=== PATIENT | male | born 1970 | race Caucasian/White ===

== ENCOUNTER 2016-02-29 18:18 | Inpatient (IN) | payer OTHER ==
[2016-02-29 20:19] VITALS: BMI 28.7
--- NOTE | 2016-02-29 21:46 | HP ---
COWS - Scale Resting Pulse: 0= [place] 80 or Below Sweatin= Chills/Flushing Restless Observation: 3= Extraneous Movement Pupil Size: 0= Normal to Room Light Bone or Joint Aches: 1= Mild Discomfort Runny Nose/ Eye Tearin= Nasal Congestion GI Upset > 30mins: 1= Stomach Cramp Tremor Observation: 2= Slight Tremor Visible Yawning Observation: 2= >3x During Session Anxiety or Irritability: 2=Irritable/Anxious Goose Flesh Skin: 3=Piloerection COWS Score: 16 Admission ROS S - HPI Chief Complaint: WITHDRAWAL SYMPTOMS Allergies/Adverse Reactions: Allergies Allergy/AdvReac Type Severity Reaction Status Date / Time house dust Allergy Verified 02/29/16 21:43 History of Present Illness: 45 Y.O. MAN WITH A 2-3 YEAR HISTORY OF OPIATE DEPENDENCE IS SEEKING DETOX FOR THE FIRST TIME. Exam Limitations: No Limitations - Ebola screening Have you traveled outside of the country in the last 21 days: No Have you had contact with anyone from an Ebola affected area: No Have you been sick,other than usual withdrawal symptoms: No Do you have a fever: No - Review of Systems Constitutional: Malaise, Night Sweats EENT: reports: Tearing, Nose Congestion Respiratory: reports: No Symptoms reported Cardiac: reports: No Symptoms Reported GI: reports: Constipated : reports: Other (HESITANCY) Musculoskeletal: reports: Back Pain Integumentary: reports: No Symptoms Reported Neuro: reports: No Symptoms reported, Tremors Endocrine: reports: No Symptoms Reported Hematology: reports: No Symptoms Reported Psychiatric: reports: Mood/Affect Appropiate, Orientated x3 Other Systems: Reviewed and Negative Patient History - Patient Medical History Hx Anemia: No Hx Asthma: No Hx Chronic Obstructive Pulmonary Disease (COPD): No Hx Cancer: No Hx Cardiac Disorders: No Hx Congestive Heart Failure: No Hx Hypertension: No Hx Hypercholesterolemia: No Hx Pacemaker: No HX Cerebrovascular Accident: No Hx Seizures: No Hx Dementia: No Hx Diabetes: No Hx Gastrointestinal Disorders: No Hx Liver Disease: No Hx Genitourinary Disorders: No Hx Sexually Transmitted Disorders: No Hx Renal Disease (ESRD): No Hx Thyroid Disease: No Hx Human Immunodeficiency Virus (HIV): No Hx Hepatitis C: No Hx Depression: Yes Hx Suicide Attempt: No Hx Bipolar Disorder: No Hx Schizophrenia: No - Patient Surgical History Past Surgical History: Yes Hx Orthopedic Surgery: Yes (RIGHT SHOULDER REPAIR ) Anesthesia Reaction: No - PPD History Previous Implant?: Yes Documented Results: Negative w/o proof PPD to be Administered?: Yes - Reproductive History Patient is a Female of Child Bearing Age (11 -55 yrs old): No - Smoking Cessation Smoking history: Current every day smoker Have you smoked in the past 12 months: Yes Aproximately how many cigarettes per day: 20 Hx Chewing Tobacco Use: No Initiated information on smoking cessation: Yes 'Breaking Loose' booklet given: 02/29/16 - Substance & Tx. History Hx Alcohol Use: No Hx Substance Use: Yes Substance Use Type: Opiates Hx Substance Use Treatment: No - Substances Abused Oxycontin Route: Oral Frequency: 3-6 times per week Amount used: 200MG Age of first use: 42 Date of Last Use: 02/29/16 Family Disease History - Family Disease History Family Disease History: Diabetes: Father, Heart Disease: Father, CA: Mother ( BREAST ) Admission Physical Exam [facility] - Vital Signs Vital Signs: Vital Signs - 24 hr 02/29/16 20:16 Temperature 97.8 F Pulse Rate 78 Respiratory 18 Rate Blood Pressure 127/71 - Physical General Appearance: Yes: No Apparent Distress, Nourished, Appropriately Dressed , Tremorous HEENTM: Yes: Normal ENT Inspection, Normocephalic, Normal Voice Respiratory: Yes: Chest Non-Tender, Lungs Clear, Normal Breath Sounds, No Respiratory Distress, No Accessory Muscle Use Neck: Yes: No masses,lesions,Nodules, Trachea in good position Breast: Yes: Breast Exam Deferred Cardiology: Yes: Regular Rhythm, Regular Rate Abdominal: Yes: Normal Bowel Sounds, Non Tender, Flat, Soft Genitourinary: Yes: Within Normal Limits Back: Yes: Normal Inspection Musculoskeletal: Yes: Gait Steady, Back pain Extremities: Yes: Normal Inspection, Normal Range of Motion, Non-Tender Neurological: Yes: Fully Oriented, Alert, Normal Mood/Affect, Normal Response Integumentary: Yes: Normal Color, Dry, Warm Lymphatic: Yes: Within Normal Limits - Diagnostic (1) Opioid dependence with withdrawal Current Visit: Yes Status: Chronic Cleared for Admission [facility] - Detox or Rehab [facility] Level of Care: Medically Managed Detox Regimen/Protocol: Methadone [facility] Breath Alcohol Content Breath Alcohol Content: 0 Urine Drug Screen - Results Drug Screen Negative: No Urine Drug Screen Results: OPI-Opiates
[2016-02-29] MEDS ORDERED: IBUPROFEN 400 MG TABLET (FP) PO PRN (22:02)
[2016-02-29] MEDS ORDERED: ACETAMINOPHEN 325 MG TABLET (FP) PO PRN (22:02)
[2016-02-29] MEDS ORDERED: MENTHOL/PHENOL 1 EACH UD MM PRN (22:02)
[2016-02-29] MEDS ORDERED: NICOTINE POLACRILEX 2 MG GUM BUC PRN (22:02)
[2016-02-29] MEDS ORDERED: guaiFENesin/D-METHORPHAN HB 10 ML UNIT-DOSE CUPS PO PRN (22:02)
[2016-02-29] MEDS ORDERED: MAGNESIUM HYDROX 2400MG/30ML ORAL SUSPENSION 30 ML CUP PO PRN (22:02)
[2016-02-29] MEDS ORDERED: MAGNESIUM CITRATE 300 ML BOTTLE PO PRN (22:02)
[2016-02-29] MEDS ORDERED: LOPERAMIDE HCL 2 MG CAPSULE PO PRN (22:02)
[2016-02-29] MEDS ORDERED: METHADONE HCL 10 MG TABLET (FOR DETOX USE ONLY) PO ONE ×2 (22:02→23:00)
[2016-02-29] MEDS ORDERED: diphenhydrAMINE HCL 50 MG CAPSULE PO PRN (22:02)
[2016-02-29] MEDS ORDERED: MAG HYDROX/AL HYDROX/SIMETH 30 ML UNIT-DOSE CUP PO PRN (22:02)
[2016-02-29] MEDS: diazePAM 5 MG TABLET PO PRN (23:26)
[2016-03-01] MEDS: diazePAM 5 MG TABLET PO PRN ×2 (05:24→17:46)
[2016-03-01] MEDS ORDERED: METHADONE HCL 10 MG TABLET (FOR DETOX USE ONLY) PO ONE (10:00)
[2016-03-01] MEDS: NICOTINE 21 MG/24 HOURS TOPICAL PATCH TD SCH (10:07)
[2016-03-01] MEDS: PRENATAL VITAMINS W/ FOLIC ACID TABLET (FP) PO SCH (10:07)
[2016-03-01 10:22] LABS: MCHC 33.3 g/dl (32.0-35.9); MEAN CELL VOLUME 90.1 fl (80-96); MEAN PLT VOLUME 8.5 fl (7.5-11.1); PLATELET COUNT 237 K/MM3 (134-434); RDW 12.9 % (11.9-15.9); WHITE BLOOD COUNT 10.8 K/mm3 (4.0-10.0)
[2016-03-01 10:45] LABS: ALBUMIN 3.6 g/dl (3.4-5.0); ALK PHOS 87 U/L (45-117); ANION GAP 8 (8-16); BILIRUBIN,TOTAL 0.3 mg/dL (0.2-1.0); CALCIUM 8.7 mg/dL (8.5-10.1); CO2 28 mmol/L (21-32); CREATININE 0.9 mg/dL (0.7-1.3); GLUCOSE,RANDOM 143 mg/dL (74-106); SGOT/AST 11 U/L (15-37); SGPT/ALT 19 U/L (12-78); TOT PROT 6.1 g/dl (6.4-8.2)
[2016-03-01] MEDS: P-EPHED 60MG/TRIPROLIDI 2.5MG TABLET PO PRN (12:08)
--- NOTE | 2016-03-01 16:29 | PN ---
[facility] COWS - Scale Resting Pulse: 0= [place] 80 or Below Sweatin=Flushed/Facial Moisture Restless Observation: 3= Extraneous Movement Pupil Size: 2= Moderately Dilated Bone or Joint Aches: 2= Severe Diffuse Aches Runny Nose/ Eye Tearin= Runny Nose/Eyes GI Upset > 30mins: 2= Nausea/Diarrhea Tremor Observation of Outstretched Hands: 2= Slight Tremor Visible Yawning Observation: 0= None Anxiety or Irritability: 2=Irritable/Anxious Goose Flesh Skin: 0=Smooth Skin COWS Score: 17 BHS Progress Note (SOAP) Subjective: Interrupted sleep, sweating, tremor, nausea, restless, anxiety Objective: 03/01/16 16:27 Last Vital Signs Temp Pulse Resp BP Pulse Ox 97 F L 69 20 112/71 03/01/16 13:55 03/01/16 13:55 03/01/16 13:55 03/01/16 13:55 Laboratory Tests 03/01/16 03/01/16 03/01/16 08:00 08:00 08:00 WBC 10.8 H RBC 4.65 Hgb 14.0 Hct 41.9 MCV 90.1 MCHC 33.3 RDW 12.9 Plt Count 237 MPV 8.5 Sodium 144 Potassium 3.9 Chloride 108 H Carbon Dioxide 28 Anion Gap 8 BUN 17 Creatinine 0.9 Creat Clearance w eGFR > 60 Random Glucose 143 H Calcium 8.7 Total Bilirubin 0.3 AST 11 L ALT 19 Alkaline Phosphatase 87 Total Protein 6.1 L Albumin 3.6 RPR Titer Nonreactive Labs noted: glucose 143 Assessment: 03/01/16 16:29 Withdrawal symptoms Noted with hyperglycemia Plan: Continue detox Hyperglycemia: change diet to diabetic, start finger stick glucose ac meals, start insulin novolog sliding scale with coverage, BMP and HbA1c in AM, UA reordered (was not done); consider changing diet if warranted
[2016-03-01] MEDS: ZOLPIDEM TARTRATE 10 MG TABLET (PARK CARE ONLY) PO PRN (22:26)
[2016-03-01] MEDS: THIAMINE HCL 100 MG TABLET (FP) PO SCH (22:26)
[2016-03-02] MEDS: diazePAM 5 MG TABLET PO PRN ×2 (05:35→22:11)
[2016-03-02] MEDS ORDERED: METHADONE HCL 5 MG TABLET (FOR DETOX USE ONLY) PO ONE (10:00)
[2016-03-02] MEDS: PRENATAL VITAMINS W/ FOLIC ACID TABLET (FP) PO SCH (10:22)
[2016-03-02] MEDS: LIDOCAINE 5% TOPICAL PATCH TP SCH (10:23)
[2016-03-02] MEDS: NICOTINE 21 MG/24 HOURS TOPICAL PATCH TD SCH (10:24)
--- NOTE | 2016-03-02 10:50 | PN ---
[facility] COWS - Scale Resting Pulse: 1= [place] 81-100 Sweatin=Flushed/Facial Moisture Restless Observation: 1= Difficult to Sit Still Pupil Size: 0= Normal to Room Light Bone or Joint Aches: 2= Severe Diffuse Aches Runny Nose/ Eye Tearin= Runny Nose/Eyes GI Upset > 30mins: 1= Stomach Cramp Tremor Observation of Outstretched Hands: 2= Slight Tremor Visible Yawning Observation: 1= 1-2x During Session Anxiety or Irritability: 2=Irritable/Anxious Goose Flesh Skin: 0=Smooth Skin COWS Score: 14 BHS Progress Note (SOAP) Subjective: SWEATING,ANXIETY,INTERRUPTED SLEEP,RESTLESS,TREMORS. Objective: 03/02/16 10:49 Last Vital Signs Temp Pulse Resp BP Pulse Ox 98.4 F 83 20 117/84 03/02/16 10:14 03/02/16 10:14 03/02/16 10:14 03/02/16 10:14 Laboratory Tests 03/01/16 03/01/16 03/01/16 08:00 08:00 08:00 WBC 10.8 H RBC 4.65 Hgb 14.0 Hct 41.9 MCV 90.1 MCHC 33.3 RDW 12.9 Plt Count 237 MPV 8.5 Sodium 144 Potassium 3.9 Chloride 108 H Carbon Dioxide 28 Anion Gap 8 BUN 17 Creatinine 0.9 Creat Clearance w eGFR > 60 POC Glucometer Random Glucose 143 H Fasting Glucose Calcium 8.7 Total Bilirubin 0.3 AST 11 L ALT 19 Alkaline Phosphatase 87 Total Protein 6.1 L Albumin 3.6 RPR Titer Nonreactive 03/01/16 03/02/16 16:47 06:30 WBC RBC Hgb Hct MCV MCHC RDW Plt Count MPV Sodium Potassium Chloride Carbon Dioxide Anion Gap BUN Creatinine Creat Clearance w eGFR POC Glucometer 100 Random Glucose Fasting Glucose 91 Calcium Total Bilirubin AST ALT Alkaline Phosphatase Total Protein Albumin RPR Titer LABS NOTED Assessment: 03/02/16 10:50 WITHDRAWAL SX. Plan: CONTINUE DETOX
[2016-03-02] MEDS: INSULIN SLIDING SCALE (NOVOLOG) 1 VIAL SQ SCH ×3 (11:22→19:27)
--- NOTE | 2016-03-02 14:04 | CONSULT ---
[facility] Psychiatric Consult - Data Date of interview: 03/02/16 Admission source: [facility] Identifying data: First admission to [facility] for this 45 y/o male seeking detox treatment on for opiate dependence.Patient is single without children,homeless,unemployed and reportedly deprived of any source of income. Substance Abuse History: - Smoking Cessation. Smoking history: Current every day smoker. Have you smoked in the past 12 months: Yes. Aproximately how many cigarettes per day: 20. Hx Chewing Tobacco Use: No. Initiated information on smoking cessation: Yes. 'Breaking Loose' booklet given: 02/29/16. - Substance & Tx. History. Hx Alcohol Use: No. Hx Substance Use: Yes. Substance Use Type : Opiates. Hx Substance Use Treatment: No. - Substances Abused. Oxycontin. Route: Oral. Frequency: 3-6 times per week. Amount used: 200MG. Age of first use: 42. Date of Last Use: 02/29/16. Patient confirmed. Medical History: Patient endorses good general health. Psychiatric History: Patient denies. Physical/Sexual Abuse/Trauma History: Patient denies. Additional Comment: Urine Drug Screen Results: OPI-Opiates.Noted. Mental Status Exam - Mental Status Exam Alert and Oriented to: Time, Place, Person Cognitive Function: Good Patient Appearance: Well Groomed Mood: Nervous, Withdrawn, Anxious, Hopeful Affect: Mood Congruent Patient Behavior: Fatigued, Appropriate, Cooperative Speech Pattern: Clear, Appropriate Voice Loudness: Normal Thought Process: Goal Oriented Thought Disorder: Not Present Hallucinations: Denies Suicidal Ideation: Denies Homicidal Ideation: Denies Insight/Judgement: Fair Sleep: Poorly, Difficulty falling asleep Appetite: Good Muscle strength/Tone: Normal Gait/Station: Normal Psychiatric Findings - Problem List ([place] 1, 2,3) (1) Opioid dependence with withdrawal Current Visit: Yes Status: Acute (2) Nicotine dependence Current Visit: Yes Status: Acute (3) Insomnia Current Visit: Yes Status: Acute - Initial Treatment Plan Initial Treatment Plan: Psychoeducation.Detoxification.Zolpidem 10 mg po hs prn.Patient is made aware of parasomnias.He agrrees with careplan.Observation.
[2016-03-02 16:34] LABS: URINE APPEARANCE CLEAR; URINE BILIRUBIN NEGATIVE (NEGATIVE); URINE BLOOD NEGATIVE (NEGATIVE); URINE COLOR LTYELLOW; URINE GLUCOSE (UA) NEGATIVE (NEGATIVE); URINE KETONE NEGATIVE (NEGATIVE); URINE LEUK ESTERASE NEGATIVE (NEGATIVE); URINE NITRITE NEGATIVE (NEGATIVE); URINE PROTEIN NEGATIVE (NEGATIVE); URINE UROBILINOGEN NEGATIVE E.U./dl (0.2-1.0)
[2016-03-02] MEDS: THIAMINE HCL 100 MG TABLET (FP) PO SCH (22:10)
[2016-03-02] MEDS: ZOLPIDEM TARTRATE 10 MG TABLET (PARK CARE ONLY) PO PRN (22:18)
[2016-03-03] MEDS: P-EPHED 60MG/TRIPROLIDI 2.5MG TABLET PO PRN (05:44)
[2016-03-03] MEDS: INSULIN SLIDING SCALE (NOVOLOG) 1 VIAL SQ SCH ×3 (07:00→17:27)
[2016-03-03] MEDS ORDERED: METHADONE HCL 5 MG TABLET (FOR DETOX USE ONLY) PO ONE (10:00)
[2016-03-03] MEDS: diazePAM 5 MG TABLET PO PRN (10:15)
[2016-03-03] MEDS: PRENATAL VITAMINS W/ FOLIC ACID TABLET (FP) PO SCH (10:15)
[2016-03-03] MEDS: LIDOCAINE 5% TOPICAL PATCH TP SCH (10:16)
[2016-03-03] MEDS: NICOTINE 21 MG/24 HOURS TOPICAL PATCH TD SCH (10:17)
--- NOTE | 2016-03-03 11:28 | PN ---
BHS Progress Note (SOAP) Subjective: ANXIETY, FATIGUE, SWEATS/CHILLS,CHRONIC LEFT HIP PAIN X 1 YR. Objective: 03/03/16 11:28 Vital Signs Temperature 95.5 F L 03/03/16 09:47 Pulse Rate 82 03/03/16 09:47 Respiratory Rate 20 03/03/16 09:47 Blood Pressure 126/80 03/03/16 09:47 O2 Sat by Pulse Oximetry (%) Assessment: 03/03/16 11:28 WITHDRAWAL SX Plan: CONTINUE DETOX
[2016-03-03] MEDS: NAPROXEN 500 MG TABLET (FP) PO SCH ×2 (14:26→22:08)
--- NOTE | 2016-03-03 14:35 | PN ---
[facility] Progress Note Note: Psychiatry Attending's note: Approached by patient. Concern : zolpidem is ineffective. Insomnia remains a problem for the patient. Mr Shah reports past good response to seroquel. He requests quetiapine at the dose of 50 mg at bedtime. Intervention : .Principles of sleep hygiene discussed with patient. .Seroquel 50 mg po hs.Ordered. .Side effects/benefits discussed with the patient. .Mr Shah is in agreement with this careplan.
[2016-03-03] MEDS: QUEtiapine FUMARATE 50 MG TABLET PO SCH (22:08)
[2016-03-03] MEDS: THIAMINE HCL 100 MG TABLET (FP) PO SCH (22:08)
[2016-03-03] MEDS: ZOLPIDEM TARTRATE 10 MG TABLET (PARK CARE ONLY) PO PRN (22:09)
[2016-03-04] MEDS: INSULIN SLIDING SCALE (NOVOLOG) 1 VIAL SQ SCH ×3 (06:29→16:58)
--- NOTE | 2016-03-04 09:35 | PN ---
BHS Progress Note (SOAP) Subjective: ANXIETY,IRRITABILITY,SEATS/CHILLS. Objective: 03/04/16 09:34 Vital Signs Temperature 96.5 F L 03/04/16 06:31 Pulse Rate 74 03/04/16 06:31 Respiratory Rate 18 03/04/16 06:31 Blood Pressure 109/78 03/04/16 06:31 O2 Sat by Pulse Oximetry (%) Assessment: 03/04/16 09:34 WITHDRAWAL SX Plan: CONTINUE DETOX. [facility]AR[facility] DIRECTED
--- NOTE | 2016-03-04 09:48 | EKG ---
Test Reason : Blood Pressure : / mmHG Vent. Rate : 078 BPM Atrial Rate : 078 BPM P-R Int : 122 ms QRS Dur : 096 ms QT Int : 366 ms P-R-T Axes : 047 057 040 degrees QTc Int : 417 ms NORMAL SINUS RHYTHM POSSIBLE LEFT ATRIAL ENLARGEMENT BORDERLINE ECG NO PREVIOUS ECGS AVAILABLE Confirmed by SHEYLA EARL, EVIN ([id number]) on 03/04/2016 9:47:45 AM Referred By: Confirmed By:EVIN CARRION MD
[2016-03-04] MEDS ORDERED: METHADONE HCL 10 MG TABLET (FOR DETOX USE ONLY) PO ONE (10:00)
[2016-03-04] MEDS: PRENATAL VITAMINS W/ FOLIC ACID TABLET (FP) PO SCH (10:24)
[2016-03-04] MEDS: NAPROXEN 500 MG TABLET (FP) PO SCH ×2 (10:24→22:44)
[2016-03-04] MEDS: LIDOCAINE 5% TOPICAL PATCH TP SCH (10:25)
[2016-03-04] MEDS: CYCLOBENZAPRINE HCL 10 MG TABLET (FP) PO PRN ×2 (10:26→17:33)
[2016-03-04] MEDS: hydrOXYzine PAMOATE 50 MG CAPSULE (FP) PO PRN ×2 (10:26→17:33)
[2016-03-04] MEDS: NICOTINE 21 MG/24 HOURS TOPICAL PATCH TD SCH (10:27)
[2016-03-04] MEDS: P-EPHED 60MG/TRIPROLIDI 2.5MG TABLET PO PRN (18:07)
[2016-03-04] MEDS: QUEtiapine FUMARATE 50 MG TABLET PO SCH (22:44)
[2016-03-04] MEDS: THIAMINE HCL 100 MG TABLET (FP) PO SCH (22:44)
[2016-03-04] MEDS: ZOLPIDEM TARTRATE 10 MG TABLET (PARK CARE ONLY) PO PRN (22:45)
[2016-03-05] MEDS: hydrOXYzine PAMOATE 50 MG CAPSULE (FP) PO PRN (01:50)
[2016-03-05] MEDS: CYCLOBENZAPRINE HCL 10 MG TABLET (FP) PO PRN (01:50)
[2016-03-05] MEDS ORDERED: METHADONE HCL 5 MG TABLET (FOR DETOX USE ONLY) PO ONE (06:00)
[2016-03-05] MEDS: INSULIN SLIDING SCALE (NOVOLOG) 1 VIAL SQ SCH (06:30)
[2016-03-05 06:42] VITALS: BP 105/73; PULSE 80; TEMP 98
[2016-03-05] MEDS: PRENATAL VITAMINS W/ FOLIC ACID TABLET (FP) PO SCH (09:25)
[2016-03-05] MEDS: NAPROXEN 500 MG TABLET (FP) PO SCH (09:25)
[2016-03-05] MEDS: NICOTINE 21 MG/24 HOURS TOPICAL PATCH TD SCH (09:26)
[2016-03-05] MEDS: LIDOCAINE 5% TOPICAL PATCH TP SCH (09:26)
--- NOTE | 2016-03-05 11:00 | DS ---
[facility] Detox Discharge Summary Admission Date: 02/29/16 Discharge Date: 03/05/16 - History Present History: Opioid Dependence Additional Comments: DETOX COMPLETED. Pertinent Past History: HX DEPRESSION/INSOMNIA - Physical Exam Results Vital Signs: Vital Signs Temperature 98 F 03/05/16 06:42 Pulse Rate 80 03/05/16 06:42 Respiratory Rate 16 03/05/16 06:42 Blood Pressure 105/73 03/05/16 06:42 O2 Sat by Pulse Oximetry (%) Pertinent Admission Physical Exam Findings: WITHDRAWAL SX - Treatment Hospital Course: Detox Protocol Followed, Detoxed Safely, Responded well, Discharged Condition Good - Medication Discharge Medications: Ambulatory Orders Quetiapine Fumarate [Seroquel -] 50 mg PO HS 03/02/16 Quetiapine Fumarate [Seroquel -] 50 mg PO HS #30 tablet 03/04/16 - Diagnosis (1) Insomnia Status: Acute (2) Nicotine dependence Status: Acute Qualifiers: Nicotine product type: cigarettes Substance use status: uncomplicated Qualified Code(s): F17.210 - Nicotine dependence, cigarettes, uncomplicated (3) Opioid dependence with withdrawal Status: Acute - AMA Did Patient Leave Against Medical Advice: No
== END 2016-03-05 09:38 | disposition home or self-care (01) | DRG 773 ==
LOC: YASAS 18:18 → Y3N 21:17
PROVIDERS: ADMIT Internal Medicine; ATTEND Internal Medicine
PROC: HZ2ZZZZ Detoxification Services for Substance Abuse Treatment (ICD-10-PCS; principal; 2016-02-29)
DX: F11.23 Opioid dependence with withdrawal (principal); F17.210 Nicotine dependence, cigarettes, uncomplicated; G47.00 Insomnia, unspecified; R73.9 Hyperglycemia, unspecified
CPT/HCPCS: 36415; 80053; 81003; 82947; 83036; 85027; 86593; 93005; 93010

== ENCOUNTER 2020-06-26 12:07 | Inpatient (IN) | payer OTHER ==
[2020-06-26 14:50] VITALS: BMI 29.7
[2020-06-26] MEDS ORDERED: MAG HYDROX/AL HYDROX/SIMETH 30 ML UNIT-DOSE CUP PO PRN (15:52)
[2020-06-26] MEDS ORDERED: MENTHOL/PHENOL 1 EACH UD MM PRN (15:52)
[2020-06-26] MEDS ORDERED: BISMUTH SUBSALICYLATE 524 MG/30 ML UD PO PRN (15:52)
[2020-06-26] MEDS ORDERED: ACETAMINOPHEN 325 MG TABLET (FP) PO PRN ×2 (15:52)
[2020-06-26] MEDS ORDERED: MAGNESIUM CITRATE 300 ML BOTTLE PO PRN (15:52)
[2020-06-26] MEDS ORDERED: MAGNESIUM HYDROX 2400MG/30ML ORAL SUSPENSION 30 ML CUP PO PRN (15:52)
[2020-06-26] MEDS ORDERED: METHADONE HCL 10 MG TABLET (FOR DETOX USE ONLY) PO ONE (15:52)
[2020-06-26] MEDS: MELATONIN 5 MG TABLETS PO SCH (22:02)
[2020-06-26] MEDS: THIAMINE HCL 100 MG TABLET (FP) PO SCH (22:02)
[2020-06-26] MEDS: hydrOXYzine PAMOATE 25 MG CAPSULE (FP) PO PRN (22:03)
[2020-06-27] MEDS: METHOCARBAMOL 500 MG TABLET PO PRN ×3 (04:11→22:07)
[2020-06-27] MEDS: IBUPROFEN 400 MG TABLET (FP) PO PRN ×2 (04:11→23:31)
[2020-06-27] MEDS: cloNIDine HCL 0.1 MG TABLET PO PRN ×2 (05:23→22:07)
[2020-06-27] MEDS ORDERED: METHADONE HCL 10 MG TABLET (FOR DETOX USE ONLY) ONE (08:49)
[2020-06-27] MEDS ORDERED: METHADONE HCL 5 MG TABLET (FOR DETOX USE ONLY) ONE (08:49)
[2020-06-27] MEDS ORDERED: METHADONE (DETOX) 20 MG, METHADONE (DETOX) 5 MG PO ONE (10:00)
[2020-06-27] MEDS: NICOTINE 21 MG/24 HOURS TOPICAL PATCH TD SCH (10:02)
[2020-06-27] MEDS: PRENATAL VITAMINS W/ FOLIC ACID TABLET (FP) PO SCH (10:02)
[2020-06-27] MEDS: diazePAM 5 MG TABLET PO PRN ×4 (10:04→22:07)
[2020-06-27] MEDS: hydrOXYzine PAMOATE 25 MG CAPSULE (FP) PO PRN ×3 (11:07→19:17)
[2020-06-27 11:49] LABS: HEMATOCRIT 45.8 % (35.4-49); HEMOGLOBIN 15.9 GM/dL (11.7-16.9); MCHC 34.7 g/dl (32.0-35.9); MEAN CELL VOLUME 89.4 fl (80-96); MEAN PLT VOLUME 8.8 fl (7.5-11.1); PLATELET COUNT 255 K/MM3 (134-434); RBC 5.12 M/mm3 (4.00-5.60); RDW 12.8 % (11.9-15.9); WHITE BLOOD COUNT 10.6 K/mm3 (4.0-10.0)
[2020-06-27 11:53] LABS: CALCIUM 9.5 mg/dL (8.5-10.1)
[2020-06-27 11:54] LABS: ALBUMIN 4.2 g/dl (3.4-5.0); BLOOD UREA NITROGEN 13.8 mg/dL (7-18)
[2020-06-27 11:57] LABS: CREATININE 0.8 mg/dL (0.55-1.3)
[2020-06-27 11:58] LABS: BILIRUBIN,TOTAL 0.4 mg/dL (0.2-1)
[2020-06-27 11:59] LABS: TOT PROT 7.4 g/dl (6.4-8.2)
[2020-06-27] MEDS: ONDANSETRON *ODT* 4 MG TABLET SL PRN (18:19)
[2020-06-27] MEDS: MELATONIN 5 MG TABLETS PO SCH (22:05)
[2020-06-27] MEDS: THIAMINE HCL 100 MG TABLET (FP) PO SCH (22:05)
[2020-06-27] MEDS: QUEtiapine FUMARATE 100 MG TABLET (FP) PO SCH (22:05)
[2020-06-27] MEDS ORDERED: METHADONE HCL 10 MG TABLET (FOR DETOX USE ONLY) PO ONE (23:42)
[2020-06-28] MEDS: hydrOXYzine PAMOATE 25 MG CAPSULE (FP) PO PRN ×6 (00:24→22:25)
[2020-06-28] MEDS: cloNIDine HCL 0.1 MG TABLET PO PRN ×2 (02:11→10:30)
[2020-06-28] MEDS: diazePAM 5 MG TABLET PO PRN ×4 (04:00→20:04)
[2020-06-28] MEDS ORDERED: METHADONE HCL 10 MG TABLET (FOR DETOX USE ONLY) PO ONE (10:00)
[2020-06-28 10:24] LABS: HEMATOCRIT 42.8 % (35.4-49); HEMOGLOBIN 14.6 GM/dL (11.7-16.9); MCH 30.3 pg (25.7-33.7); MCHC 34.2 g/dl (32.0-35.9); MEAN CELL VOLUME 88.6 fl (80-96); MEAN PLT VOLUME 7.9 fl (7.5-11.1); PLATELET COUNT 266 K/MM3 (134-434); RBC 4.83 M/mm3 (4.00-5.60); RDW 13.1 % (11.9-15.9); WHITE BLOOD COUNT 12.6 K/mm3 (4.0-10.0)
[2020-06-28] MEDS: PRENATAL VITAMINS W/ FOLIC ACID TABLET (FP) PO SCH (10:28)
[2020-06-28] MEDS: NICOTINE 21 MG/24 HOURS TOPICAL PATCH TD SCH (10:29)
[2020-06-28] MEDS: ONDANSETRON *ODT* 4 MG TABLET SL PRN (12:06)
[2020-06-28] MEDS: QUEtiapine FUMARATE 100 MG TABLET (FP) PO SCH (22:25)
[2020-06-28] MEDS: MELATONIN 5 MG TABLETS PO SCH (22:25)
[2020-06-28] MEDS: THIAMINE HCL 100 MG TABLET (FP) PO SCH (22:25)
[2020-06-29] MEDS: diazePAM 5 MG TABLET PO PRN ×5 (00:45→22:04)
[2020-06-29] MEDS: hydrOXYzine PAMOATE 25 MG CAPSULE (FP) PO PRN ×5 (03:36→22:01)
[2020-06-29] MEDS: METHOCARBAMOL 500 MG TABLET PO PRN ×3 (03:36→16:57)
[2020-06-29] MEDS ORDERED: METHADONE HCL 5 MG TABLET (FOR DETOX USE ONLY) ONE (09:57)
[2020-06-29] MEDS ORDERED: METHADONE HCL 10 MG TABLET (FOR DETOX USE ONLY) ONE (09:57)
[2020-06-29] MEDS ORDERED: METHADONE (DETOX) 10 MG, METHADONE (DETOX) 5 MG PO ONE (10:00)
[2020-06-29] MEDS: PRENATAL VITAMINS W/ FOLIC ACID TABLET (FP) PO SCH (10:20)
[2020-06-29] MEDS: NICOTINE 21 MG/24 HOURS TOPICAL PATCH TD SCH (10:20)
[2020-06-29] MEDS: ONDANSETRON *ODT* 4 MG TABLET SL PRN (13:30)
[2020-06-29] MEDS: QUEtiapine FUMARATE 100 MG TABLET (FP) PO SCH (22:01)
[2020-06-29] MEDS: MELATONIN 5 MG TABLETS PO SCH (22:02)
[2020-06-29] MEDS: THIAMINE HCL 100 MG TABLET (FP) PO SCH (22:02)
[2020-06-30] MEDS: diazePAM 5 MG TABLET PO PRN ×2 (02:13→07:42)
[2020-06-30] MEDS: hydrOXYzine PAMOATE 25 MG CAPSULE (FP) PO PRN ×2 (02:14→07:43)
[2020-06-30 07:20] VITALS: TEMP 97.1
[2020-06-30 09:05] VITALS: BP 125/81; PULSE 82
[2020-06-30] MEDS ORDERED: METHADONE HCL 10 MG TABLET (FOR DETOX USE ONLY) PO ONE (10:00)
[2020-06-30] MEDS: PRENATAL VITAMINS W/ FOLIC ACID TABLET (FP) PO SCH (10:19)
[2020-06-30] MEDS: NICOTINE 21 MG/24 HOURS TOPICAL PATCH TD SCH (10:20)
[2020-06-30] MEDS: ONDANSETRON *ODT* 4 MG TABLET SL PRN (10:54)
[2020-06-30 12:23] LABS: BASO % 0.6 % (0-2.0); EOS % 2.1 % (0-4.5); HEMATOCRIT 41.8 % (35.4-49); HEMOGLOBIN 14.5 GM/dL (11.7-16.9); LYMPH % 41.9 % (8-40); MCH 30.8 pg (25.7-33.7); MCHC 34.7 g/dl (32.0-35.9); MEAN CELL VOLUME 88.8 fl (80-96); MEAN PLT VOLUME 8.4 fl (7.5-11.1); MONO % 7.3 % (3.8-10.2); NEUT % 48.1 % (42.8-82.8); PLATELET COUNT 241 K/MM3 (134-434); RDW 12.7 % (11.9-15.9); WHITE BLOOD COUNT 10.6 K/mm3 (4.0-10.0)
[2020-06-30 14:11] LABS: SARS-CoV-2 NAA Not Detected (Not Detected)
[2020-07-01] MEDS ORDERED: METHADONE HCL 5 MG TABLET (FOR DETOX USE ONLY) PO ONE (06:00)
== END 2020-06-30 12:10 | disposition left against medical advice (07) | DRG 770 ==
LOC: YASAS 12:07 → Y3N 15:40 → UNDOADMIN 15:40 → Y3N 18:24
PROVIDERS: ADMIT Allergy & Immunology; ATTEND Allergy & Immunology
PROC: HZ2ZZZZ Detoxification Services for Substance Abuse Treatment (ICD-10-PCS; principal; 2020-06-26)
DX: F11.23 Opioid dependence with withdrawal (principal); F13.20 Sedative, hypnotic or anxiolytic dependence, uncomplicated; F17.210 Nicotine dependence, cigarettes, uncomplicated; F19.24 Other psychoactive substance dependence with psychoactive substance-induced mood disorder; D72.829 Elevated white blood cell count, unspecified; G47.00 Insomnia, unspecified; Z59.0 Homelessness
CPT/HCPCS: 36415; 80053; 84132; 85025; 85027; 86780; 93005; 93010; C9803; J0735; Q0162; U0003; U0005